=== PATIENT | female | born 1970 | race Caucasian/White ===

== ENCOUNTER 2019-03-06 15:52 | Emergency (ER) | payer OTHER, SELFPAY ==
[2019-03-06 15:54] VITALS: BP 115/90; PULSE 78; RESP 16; TEMP 36.6; O2SAT 99; BMI 18.7
--- NOTE | 2019-03-06 16:31 | ED.DCSUM_ITS ---
- ER Visit Summary Date of Service: 03/06/19 Chief Complaint: Right ankle laceration History of Present Illness: The patient is a 48 F who presents with laceration to her right ankle that occurred today. Patient states she was walking when she stepped on a glass bottle. Patient states the bottle broke and cut her left ankle. Patient is unsure of her last tetanus but thinks it is more than 10 years ago. Patient describes her pain is dull. Patient states the bleeding stopped after several minutes of pressure. Patient denies any paresthesias or weakness. Physical Examination: Vital signs are stable. Patient is afebrile. Patient is in no acute distress. Skin is warm and dry. There is a 2 cm full-thickness linear laceration over the medial aspect of the right ankle. There is no active bleeding noted. There are no foreign bodies visualized. Sensation was intact to light touch in all digits. Capillary refill is less than 2 seconds in all digits. Pedal pulses 2+. There is full range of motion of the right ankle and foot. There is no tenderness over the right calf or right midfoot. Test Results: X-rays of the right ankle were obtained. There is no foreign body noted. There is no other acute abnormality noted. These were interpreted by the radiologist and myself. Emergency Department Course and Treatment: Patient was given a tetanus booster. The wound was cleaned and irrigated with copious amounts normal saline. The wound was anesthetized 1% plain lidocaine locally. The wound was closed with 3 simple interrupted #4-0 nylon sutures under sterile technique. Bacitracin dressing was applied. Patient tolerated the procedure well. Patient was instructed to follow-up in 5 to 7 days for wound recheck and suture removal. Patient understood and was agreeable with the plan. All questions were answered. Disposition: Discharge home Impression: Right ankle laceration This note was generated with [employer] dictation software. It may contain incorrect words, spelling, and punctuation that were not noted in review of the chart prior to signing ED Disposition - Plan for ED Patient: Disposition: Home or Assisted Living Diagnosis: Laceration of right ankle Instructions: LACERATION, Extrem (Suture, Staple or Tape), LACERATION, How to Minimize Scar Referrals: NOT,DEFINED [NON-STAFF] - 5 Days for suture removal
--- NOTE | 2019-03-06 16:37 | RAD_ITS ---
STUDY: X-RAY - RIGHT ANKLE REASON FOR EXAM: Female, 48 years old. Laceration to medial right ankle from a glass bottle TECHNIQUE: 3 view(s) of the ankle. COMPARISON: None. FINDINGS: Normal visualized distal tibia and fibula. Normal medial and lateral malleoli. Normal tibiotalar articulation and ankle mortise. Normal visualized talus and calcaneus. The visualized subtalar, talonavicular, calcaneocuboid and tarsal articulations are normal. There is soft tissue swelling of the medial ankle with small defect compatible with laceration. RAD/Ankle min 3 Views IMPRESSION: Medial ankle soft tissue swelling with laceration. No demonstrated fracture. No radiopaque foreign body demonstrated. Electronically Signed: Armando Cornell MD ([facility]) at 16:49 EDT , Service support ,
[2019-03-06] MEDS: Diphth,Pertuss(Acell),Tet Vac 0.5 ML Vial IM (16:41)
[2019-03-06] MEDS: BACITRACIN 15 GM Tube 1 APPLIC TOPICAL (16:42)
[2019-03-06 17:59] VITALS: BP 120/74; PULSE 80; RESP 14; O2SAT 98
== END 2019-03-06 18:00 | disposition home or self-care (01) ==
PROVIDERS: Emergency Provider Emergency Medicine
DX: S91.011A Laceration without foreign body, right ankle, initial encounter (principal); S91.012A Laceration without foreign body, left ankle, initial encounter; Y93.01 Activity, walking, marching and hiking; W22.8XXA Striking against or struck by other objects, initial encounter; Y92.9 Unspecified place or not applicable; Y99.9 Unspecified external cause status; Z23 Encounter for immunization
CPT/HCPCS: 12001; 73610; 90715; 99284